=== PATIENT | female | born 1970 | race Caucasian/White ===

== ENCOUNTER 2017-02-17 12:24 | Emergency (ER) | payer SELFPAY ==
[~2017-02-17] VITALS: Ht 172.7 cm; Wt 72.6 kg
--- NOTE | 2017-02-17 12:30 | NUR ---
PT AMBULATORY TO ER BED 7. COUGH AND CONGESTION X 2 WEEKS. STATES BEEN TAKING COUGH MEDICATION AND STILL NOT GETTING BETTER. SMOKER. [employer] [address]. VSS. AWAITING MD BELTRÁN.
--- NOTE | 2017-02-17 12:35 | NUR ---
MAGUE BLACK AT BEDSIDE FOR EVAL.
--- NOTE | 2017-02-17 12:41 | NUR ---
PT STATES NO CHANCE OF . WAIVER SIGNED. RADIOLOGY MADE AWARE.
--- NOTE | 2017-02-17 12:50 | NUR ---
XRAY AT BS
[2017-02-17 13:51] VITALS: BP 109/74
== END 2017-02-17 13:52 | disposition home or self-care (01) ==
LOC: ER 12:26
DX: S60.051A Contusion of right little finger without damage to nail, initial encounter (principal); J45.909 Unspecified asthma, uncomplicated; X58.XXXA Exposure to other specified factors, initial encounter; Y93.89 Activity, other specified; Y92.89 Other specified places as the place of occurrence of the external cause; Y99.8 Other external cause status
CPT/HCPCS: 71010; 73140; 99284; A4606; Z7610